=== PATIENT | male | born 1965 | race African-American/Black ===

== ENCOUNTER 2023-03-31 11:01 | Emergency (ER) | payer OTHER ==
[~2023-03-31] VITALS: Ht 182.9 cm; Wt 80.0 kg
[2023-03-31 11:13] VITALS: BP 173/118; PULSE 84; RESP 16; TEMP 98.1; O2SAT 99
== END 2023-03-31 13:33 ==
LOC: ER 12:45
DX: Z02.89 Encounter for other administrative examinations (principal)
CPT/HCPCS: 99283